=== PATIENT | female | born 1960 | race Asian ===

== ENCOUNTER 2021-02-22 22:13 | Emergency (ER) | payer MEDICAID ==
[~2021-02-22] VITALS: Ht 152.4 cm; Wt 60.0 kg
[~2021-02-22 22:13] MED LIST: ALBU18HF2 IH; GLIP-127 PO; INSULIN; ZOLP10TA5 PO
--- NOTE | 2021-02-22 22:43 | NUR ---
bgl 68, notified md. Pt. given a sandwich, refuses orange juice due to stomach issues, md notified see new orders. Will reassess.
[2021-02-22] MEDS ORDERED: dextrose ORAL solution 15 GM/59 ML bottle PO ONE (22:55)
--- NOTE | 2021-02-22 23:00 | NUR ---
Pt. ate nearly full sandwich and oral glucose, she states she feels better.
[2021-02-22] MEDS ORDERED: normal saline 1000ML IV soln IVB ONE (23:05)
--- NOTE | 2021-02-22 23:45 | NUR ---
Repeat bgl as noted. Pt. educated on need for urine sample, states she does not have to go at this time.
[2021-02-22 23:53] LABS: BASOPHILS % (AUTO) 0.2 % (0-1); EOSINOPHILS # (AUTO) 0.1 X10'3 (0-0.9); EOSINOPHILS % (AUTO) 0.5 % (0-6); HEMATOCRIT 34.3 % (35.0-45.0); HEMOGLOBIN 11.1 g/dl (12.0-16.0); LYMPHOCYTES # (AUTO) 1.6 X10'3 (1.1-4.8); LYMPHOCYTES % (AUTO) 7.8 % (21-51); MEAN CORPUSCULAR HEMOGLOBIN 20.4 PG (27.0-31.0); MEAN CORPUSCULAR HGB CONC 32.4 g/dL (33.0-36.5); MEAN PLATELET VOLUME 8.5 FL (7.4-10.4); MONOCYTES # (AUTO) 1.1 X10'3 (0-0.9); MONOCYTES % (AUTO) 5.4 % (2-12); NEUTROPHILS # (AUTO) 17.3 X10'3 (1.8-7.7); NEUTROPHILS % (AUTO) 86.1 % (42-75); PLATELET COUNT 249 X10'3 (140-440); RED BLOOD COUNT 5.44 X10'6 (4.20-5.60); RED CELL DISTRIBUTION WIDTH 16.8 % (11.5-14.5); WHITE BLOOD COUNT 20.1 X10'3 (4.5-11.0)
[2021-02-23 00:16] LABS: ALANINE AMINOTRANSFERASE 25 U/L (12-78); ALBUMIN 3.6 G/DL (3.4-5.0); ALBUMIN/GLOBULIN RATIO 0.9 (1.1-1.5); ALKALINE PHOSPHATASE 77 IU/L (46-116); ANION GAP 9 (8-16); ASPARTATE AMINO TRANSFERASE 14 U/L (10-37); BILIRUBIN,TOTAL 0.3 MG/DL (0.1-1.0); BLOOD UREA NITROGEN 10 MG/DL (7-18); BUN/CREATININE RATIO 12.3 (6.6-38.0); CALCIUM 8.4 MG/DL (8.5-10.1); CHLORIDE 103 MMOL/L (99-107); CREATININE 0.81 MG/DL (0.40-0.90); GLUCOSE 116 MG/DL (70-104); SODIUM 142 MMOL/L (135-145); TOTAL CARBON DIOXIDE 29.6 MMOL/L (24-32); TOTAL PROTEIN 7.4 G/DL (6.4-8.2); TROPONIN I < 0.04 NG/ML (0.0-0.05); eGFR 72 ML/MIN
--- NOTE | 2021-02-23 00:17 | NUR ---
pt. ambulatory to bathroom with steady gait, instructed on leaving a urine sample.
[2021-02-23] MEDS ORDERED: normal saline 1000ML IV soln IV ONE (00:30)
[2021-02-23] MEDS ORDERED: CefTRIAXone 2gm/D5W 50ml BAG 50 ML IV ONE (00:30)
[2021-02-23 00:42] LABS: CLARITY,URINE SLIGHTLY CLOUDY (Clear); COLOR,URINE YELLOW (Yellow); GLUCOSE, URINE 100 mg/dl (Neg); KETONES,URINE NEGATIVE (Neg); LEUKOCYTE ESTERASE ,URINE NEGATIVE (Neg); NITRITES, URINE POSITIVE (Neg); OCCULT BLOOD,URINE NEGATIVE (Neg); PROTEIN,URINE NEGATIVE (Neg); UROBILINOGEN,URINE 0.2 E.U/dL (0.2-1.0)
[2021-02-23] MEDS ORDERED: INSU100I39 SQ (00:47)
[2021-02-23] MEDS ORDERED: SUCR1TAB PO (00:47)
[2021-02-23] MEDS ORDERED: LANC-509 (00:47)
[2021-02-23] MEDS ORDERED: CETI10TA14 PO (00:47)
[2021-02-23] MEDS ORDERED: OMEP40CA21 PO (00:47)
[2021-02-23] MEDS ORDERED: BLOO-1084 (00:47)
[2021-02-23] MEDS ORDERED: METO50TA17 PO (00:47)
[2021-02-23] MEDS ORDERED: MECL-159 PO (00:47)
[2021-02-23] MEDS ORDERED: ATOR20TA66 PO (00:47)
[2021-02-23] MEDS ORDERED: BECL10.6 INH (00:47)
[2021-02-23] MEDS ORDERED: INSU100I31 SQ (00:47)
[2021-02-23] MEDS ORDERED: PIOG45TA5 PO (00:48)
[2021-02-23] MEDS ORDERED: METO-292 PO (00:48)
[2021-02-23] MEDS ORDERED: ALBU18HF2 INH (00:49)
[2021-02-23 00:56] LABS: UA COLLECTION TYPE VOIDED
[2021-02-23 01:01] LABS: BACTERIA,URINE 3+ /HPF (Neg); MUCUS STRANDS FEW /LPF (Neg); RBC,URINE NONE SEEN /HPF (0-2); SQUAMOUS EPITHELIAL CELL,UR FEW /LPF (FEW); WBC,URINE 0-4 /HPF (0-4)
[2021-02-23] MEDS ORDERED: CEPH-585 PO (01:02)
[2021-02-23] MEDS ORDERED: POTA20TA19 PO (01:16)
[2021-02-23] MEDS ORDERED: ONDA4TAB6 PO (01:16)
[2021-02-23] MEDS ORDERED: potassium Cl 20 mEq SR tablet PO STA (01:18)
[2021-02-23 01:38] LABS: HYPOCHROMASIA 2+; PLATELET ESTIMATE NORMAL
[2021-02-23 01:39] LABS: ANISOCYTOSIS 1+; MICROCYTOSIS 2+
[2021-02-23 02:26] VITALS: BP 126/65
== END 2021-02-23 02:33 | disposition home or self-care (01) ==
LOC: ER 22:13
DX: N39.0 Urinary tract infection, site not specified (principal); R53.1 Weakness; E87.6 Hypokalemia; R11.0 Nausea; K21.9 Gastro-esophageal reflux disease without esophagitis; E11.9 Type 2 diabetes mellitus without complications; Z79.2 Long term (current) use of antibiotics; Z79.4 Long term (current) use of insulin; Z79.899 Other long term (current) drug therapy
CPT/HCPCS: 36415; 71045; 80053; 81001; 82948; 83605; 83735; 84145; 84439; 84443; 84484; 85008; 85025; 87040; 87077; 87088; 87186; 93005; 96361; 96365; 99285; J0696; J7030